=== PATIENT | female | born 1970 ===

== ENCOUNTER 2018-04-15 02:13 | Emergency (ER) | payer SELFPAY ==
[2018-04-15 02:35] VITALS: PULSE 88; RESP 20; TEMP 98
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
[2018-04-15 03:44] VITALS: BP 142/78
[2018-04-15 03:45] VITALS: O2SAT 98
== END 2018-04-15 03:42 | disposition home or self-care (01) ==
LOC: C.ER 02:13
DX: S00.83XA Contusion of other part of head, initial encounter (principal); Y04.0XXA Assault by unarmed brawl or fight, initial encounter